=== PATIENT | female | born 1995 | race Caucasian/White ===

== ENCOUNTER → 2020-09-30 15:00 | Observation (INO) ==
[2020-09-30 13:26] LABS: Amorphous Sediment,Urine Few per hpf (None-Few); Bacteria,Urine Few per hpf (None-Few); Bilirubin,Urine Negative (Negative); Blood,Urine Negative (Negative); Clarity,Urine Turbid (Clear); Color,Urine Yellow (Yellow); Glucose,Urine (UA) Normal (Normal); Ketones,Urine Negative (Negative); Leukocyte Esterase,Urine Trace (Negative); Mucus,Urine Few per lpf (None-Few); Nitrite,Urine Negative (Negative); Protein,Urine Trace mg/dL (Neg-Trace); RBC,Urine 0-3 per hpf (0-3); Specific Gravity,Urine 1.017 (1.010-1.025); Squamous Epithelial Cell,Urine Many per hpf (None-Few); Urobilinogen,Urine Normal (Normal); WBC,Urine 0-3 per hpf (0-3)
[2020-09-30 14:15] LABS: Basophils % 0.2 %; Eosinophils # 0.1 K/mcL (0.0-0.6); Eosinophils % 0.6 %; Hematocrit 35.2 % (35.3-44.9); Immature Granulocytes % 0.4 % (0-4); Lymphocytes # 2.7 K/mcL (0.6-4.6); Lymphocytes % 22.6 %; Mean Corpuscular HGB Conc 34.1 g/dL (31.6-35.5); Mean Corpuscular Hemoglobin 32.3 pg (28.0-33.3); Mean Corpuscular Volume 94.9 fL (83.0-100.0); Monocytes # 0.8 K/mcL (0.0-1.3); Monocytes % 6.7 %; Neutrophils # 8.3 K/mcL (1.6-8.9); Platelet Count 200 K/mcL (140-400); Red Blood Count 3.71 M/mcL (3.82-4.97); Red Cell Distribution Width 12.1 % (11.5-14.5); Segmented Neutrophils % 69.5 %; White Blood Count 11.9 K/mcL (4.3-11.1)
[2020-09-30 14:34] LABS: Albumin 3.7 g/dL (3.5-5.7); Albumin/Globulin Ratio 1.3 (1.1-2.2); Bilirubin,Direct 0.1 mg/dL (0.0-0.2); Bilirubin,Indirect 0.1 mg/dL (0.0-1.0); Bilirubin,Total 0.2 mg/dL (0.3-1.0); Globulin 2.8 g/dL (2.4-3.5); Total Protein 6.5 g/dL (6.4-8.9)
== END | disposition home or self-care (01) ==
LOC: 1NENULAB
PROVIDERS: ADMIT Obstetrics & Gynecology; ATTEND Obstetrics & Gynecology

== ENCOUNTER 2020-10-19 19:02 | Observation (INO) ==
[2020-10-19 19:50] LABS: Bilirubin,Urine Negative (Negative); Blood,Urine Negative (Negative); Clarity,Urine Clear (Clear); Color,Urine Light-Orange (Yellow); Glucose,Urine (UA) Normal (Normal); Ketones,Urine Negative (Negative); Leukocyte Esterase,Urine Negative (Negative); Nitrite,Urine Negative (Negative); Protein,Urine Trace mg/dL (Neg-Trace); Specific Gravity,Urine 1.022 (1.010-1.025); Urobilinogen,Urine Normal (Normal)
[2020-10-19] MEDS ORDERED: Acetaminophen 325 MG TABLET PO ONE (20:11)
[2020-10-19 21:29] LABS: Trichomonas DNA Not Detected (Not Detect)
[2020-10-19 21:30] LABS: Candida DNA Not Detected (Not Detect); Gardnerella DNA DETECTED (Not Detect)
== END 2020-10-19 20:49 | disposition home or self-care (01) ==
LOC: 1NENULAB
PROVIDERS: ADMIT Obstetrics & Gynecology; ATTEND Obstetrics & Gynecology

== ENCOUNTER → 2020-11-14 18:53 | Observation (INO) ==
[2020-11-14 15:54] LABS: Basophils % 0.2 %; Eosinophils # 0.1 K/mcL (0.0-0.6); Eosinophils % 0.5 %; Hematocrit 32.8 % (35.3-44.9); Hemoglobin 11.4 g/dL (11.5-15.4); Immature Granulocytes % 0.7 % (0-4); Lymphocytes # 2.4 K/mcL (0.6-4.6); Lymphocytes % 18.3 %; Mean Corpuscular HGB Conc 34.8 g/dL (31.6-35.5); Mean Corpuscular Hemoglobin 32.1 pg (28.0-33.3); Mean Corpuscular Volume 92.4 fL (83.0-100.0); Mean Platelet Volume 9.4 fL (9.4-12.4); Monocytes # 0.9 K/mcL (0.0-1.3); Monocytes % 6.7 %; Neutrophils # 9.6 K/mcL (1.6-8.9); Platelet Count 215 K/mcL (140-400); Red Blood Count 3.55 M/mcL (3.82-4.97); Red Cell Distribution Width 12.1 % (11.5-14.5); Segmented Neutrophils % 73.6 %
[2020-11-14 15:58] LABS: Protein/Creatinine Ratio,Urine 0.11 mg/mg (0.00-0.20)
[2020-11-14 16:09] LABS: Alanine Aminotransferase 11 Units/L (7-52); Aspartate Amino Transferase 13 Units/L (13-39); BUN/Creatinine Ratio 15 (6-26); Blood Urea Nitrogen 8 mg/dL (6-20); Lactate Dehydrogenase 93 Units/L (140-271); Uric Acid 3.6 mg/dL (2.3-7.6); eGFR For African Americans > 60 (> 60); eGFR For Non-African Americans > 60 (> 60)
[2020-11-14 17:32] LABS: Amorphous Sediment,Urine Few per hpf (None-Few); Bacteria,Urine Few per hpf (None-Few); Bilirubin,Urine Negative (Negative); Blood,Urine Negative (Negative); Clarity,Urine Turbid (Clear); Color,Urine Yellow (Yellow); Glucose,Urine (UA) Normal (Normal); Hyaline Casts,Urine Few per lpf (None Seen); Ketones,Urine Negative (Negative); Leukocyte Esterase,Urine Negative (Negative); Mucus,Urine Few per lpf (None-Few); Nitrite,Urine Negative (Negative); Protein,Urine Negative (Neg-Trace); RBC,Urine 0-3 per hpf (0-3); Specific Gravity,Urine 1.017 (1.010-1.025); Squamous Epithelial Cell,Urine Moderate per hpf (None-Few); Urobilinogen,Urine Normal (Normal)
[~2020-11-14 18:53] MED LIST: Acetaminophen/Butalbital/CaffeineTABLET PO PRN
== END | disposition home or self-care (01) ==
LOC: 1NENULAB
PROVIDERS: ADMIT Registered Nurse; ATTEND Registered Nurse

== ENCOUNTER 2020-11-29 19:39 | Observation (INO) ==
[2020-11-29 19:46] LABS: Amorphous Sediment,Urine Few per hpf (None-Few); Bacteria,Urine Moderate per hpf (None-Few); Bilirubin,Urine Negative (Negative); Blood,Urine Negative (Negative); Clarity,Urine Turbid (Clear); Color,Urine Yellow (Yellow); Glucose,Urine (UA) Normal (Normal); Ketones,Urine Negative (Negative); Leukocyte Esterase,Urine Negative (Negative); Mucus,Urine Few per lpf (None-Few); Nitrite,Urine Negative (Negative); PH,Urine 6.5 pH Units (5.0-8.0); Protein,Urine Trace mg/dL (Neg-Trace); RBC,Urine 0-3 per hpf (0-3); Squamous Epithelial Cell,Urine Moderate per hpf (None-Few); Urobilinogen,Urine Normal (Normal)
[2020-11-29] MEDS ORDERED: Ringers Solution, Lactated 1,000 ML IVC ONE (19:52)
[2020-11-29] MEDS ORDERED: Ringers Solution, Lactated 1,000 ML ONE (19:59)
== END 2020-11-29 21:30 | disposition home or self-care (01) ==
LOC: 1NENULAB
PROVIDERS: ADMIT Student in an Organized Health Care Education/Training Program; ATTEND Student in an Organized Health Care Education/Training Program

== ENCOUNTER → 2020-12-23 23:58 | Observation (INO) ==
[2020-12-23 23:42] LABS: Bacteria,Urine Few per hpf (None-Few); Bilirubin,Urine Negative (Negative); Blood,Urine Negative (Negative); Clarity,Urine Turbid (Clear); Color,Urine Light-Yellow (Yellow); Glucose,Urine (UA) Normal (Normal); Ketones,Urine Negative (Negative); Leukocyte Esterase,Urine Trace (Negative); Mucus,Urine Few per lpf (None-Few); Nitrite,Urine Negative (Negative); Protein,Urine Negative (Neg-Trace); RBC,Urine 0-3 per hpf (0-3); Specific Gravity,Urine 1.011 (1.010-1.025); Squamous Epithelial Cell,Urine Many per hpf (None-Few); Urobilinogen,Urine Normal (Normal)
== END | disposition home or self-care (01) ==
LOC: 1NENULAB → 1NENUOBS
PROVIDERS: ADMIT Advanced Practice Midwife; ATTEND Advanced Practice Midwife

== ENCOUNTER → 2021-01-03 23:50 | Observation (INO) ==
[2021-01-03 22:17] LABS: Bilirubin,Urine Negative (Negative); Blood,Urine Negative (Negative); Clarity,Urine Clear (Clear); Color,Urine Light-Yellow (Yellow); Glucose,Urine (UA) Normal (Normal); Ketones,Urine Negative (Negative); Leukocyte Esterase,Urine Negative (Negative); Nitrite,Urine Negative (Negative); Protein,Urine Negative (Neg-Trace); Specific Gravity,Urine 1.009 (1.010-1.025); Urobilinogen,Urine Normal (Normal)
[~2021-01-03 23:50] MED LIST changes: +Acetaminophen 325 MG TABLET PO ONE; -Acetaminophen/Butalbital/CaffeineTABLET PO PRN; +Ringers Solution, Lactated 1,000 ML IVC ONE; +Ringers Solution, Lactated 1,000 ML ONE
== END | disposition home or self-care (01) ==
LOC: 1NENULAB
PROVIDERS: ADMIT Student in an Organized Health Care Education/Training Program; ATTEND Student in an Organized Health Care Education/Training Program

== ENCOUNTER → 2021-01-10 18:53 | Observation (INO) ==
[2021-01-10 18:09] LABS: Bacteria,Urine Few per hpf (None-Few); Bilirubin,Urine Negative (Negative); Blood,Urine Negative (Negative); Clarity,Urine Turbid (Clear); Color,Urine Light-Yellow (Yellow); Glucose,Urine (UA) Normal (Normal); Ketones,Urine Negative (Negative); Leukocyte Esterase,Urine Negative (Negative); Mucus,Urine Few per lpf (None-Few); Nitrite,Urine Negative (Negative); Protein,Urine Trace mg/dL (Neg-Trace); RBC,Urine 0-3 per hpf (0-3); Specific Gravity,Urine 1.015 (1.010-1.025); Squamous Epithelial Cell,Urine Moderate per hpf (None-Few); Urobilinogen,Urine Normal (Normal)
== END | disposition home or self-care (01) ==
LOC: 1NENULAB
PROVIDERS: ADMIT Advanced Practice Midwife; ATTEND Advanced Practice Midwife

== ENCOUNTER 2021-01-20 20:59 | Observation (INO) ==
[2021-01-20 21:27] LABS: Basophils % 0.2 %; Eosinophils # 0.1 K/mcL (0.0-0.6); Eosinophils % 0.7 %; Hematocrit 33.1 % (35.3-44.9); Lymphocytes % 23.1 %; Mean Corpuscular HGB Conc 33.2 g/dL (31.6-35.5); Mean Corpuscular Hemoglobin 30.9 pg (28.0-33.3); Mean Platelet Volume 9.5 fL (9.4-12.4); Monocytes # 1.5 K/mcL (0.0-1.3); Monocytes % 8.7 %; Neutrophils # 11.5 K/mcL (1.6-8.9); Platelet Count 277 K/mcL (140-400); Red Blood Count 3.56 M/mcL (3.82-4.97); Red Cell Distribution Width 12.4 % (11.5-14.5); Segmented Neutrophils % 66.3 %; White Blood Count 17.3 K/mcL (4.3-11.1)
[2021-01-20 21:30] VITALS: BP 146/87
[2021-01-20 21:37] LABS: Bacteria,Urine Few per hpf (None-Few); Bilirubin,Urine Negative (Negative); Blood,Urine Negative (Negative); Clarity,Urine Turbid (Clear); Color,Urine Light-Yellow (Yellow); Glucose,Urine (UA) Normal (Normal); Ketones,Urine Negative (Negative); Leukocyte Esterase,Urine Negative (Negative); Nitrite,Urine Negative (Negative); PH,Urine 7.5 pH Units (5.0-8.0); Protein,Urine Trace mg/dL (Neg-Trace); RBC,Urine 0-3 per hpf (0-3); Specific Gravity,Urine 1.014 (1.010-1.025); Squamous Epithelial Cell,Urine Moderate per hpf (None-Few); Urobilinogen,Urine Normal (Normal); WBC,Urine 0-3 per hpf (0-3)
[2021-01-20 21:50] LABS: Alanine Aminotransferase 10 Units/L (7-52); Aspartate Amino Transferase 15 Units/L (13-39); BUN/Creatinine Ratio 10 (6-26); Blood Urea Nitrogen 6 mg/dL (6-20); Lactate Dehydrogenase 125 Units/L (140-271); Uric Acid 3.9 mg/dL (2.3-7.6); eGFR For African Americans > 60 (> 60); eGFR For Non-African Americans > 60 (> 60)
[2021-01-20 22:37] LABS: Protein/Creatinine Ratio,Urine 0.19 mg/mg (0.00-0.20)
[2021-01-20] MEDS ORDERED: Metoclopramide 10 MG/2 ML VIAL IVP ONE (22:46)
[2021-01-20] MEDS ORDERED: Acetaminophen 325 MG TABLET PO ONE (22:46)
== END 2021-01-20 23:05 | disposition home or self-care (01) ==
LOC: 1NENULAB
PROVIDERS: ADMIT Advanced Practice Midwife; ATTEND Advanced Practice Midwife

== ENCOUNTER 2021-01-28 21:45 | Observation (INO) ==
[2021-01-28] MEDS ORDERED: Ringers Solution, Lactated 1,000 ML IVC SCH (22:15)
[2021-01-28] MEDS: *HR* Nalbuphine 10 MG/ML AMPUL IV PRN (22:38)
[2021-01-28 23:02] LABS: Bilirubin,Urine Negative (Negative); Blood,Urine Negative (Negative); Clarity,Urine Clear (Clear); Color,Urine Light-Yellow (Yellow); Glucose,Urine (UA) Normal (Normal); Ketones,Urine Negative (Negative); Leukocyte Esterase,Urine Negative (Negative); Nitrite,Urine Negative (Negative); Protein,Urine Negative (Neg-Trace); Specific Gravity,Urine 1.017 (1.010-1.025); Urobilinogen,Urine Normal (Normal)
[2021-01-29] MEDS: *HR* Nalbuphine 10 MG/ML AMPUL IV PRN (00:37)
== END 2021-01-29 01:50 | disposition home or self-care (01) ==
LOC: 1NENULAB
PROVIDERS: ADMIT Registered Nurse; ATTEND Registered Nurse

== ENCOUNTER 2021-01-31 19:45 | Observation (INO) ==
[2021-01-31] MEDS ORDERED: hydrOXYzine pamoate 25 MG CAPSULE PO ONE (20:37)
== END 2021-01-31 20:57 | disposition home or self-care (01) ==
LOC: 1NENULAB
PROVIDERS: ADMIT Obstetrics & Gynecology; ATTEND Obstetrics & Gynecology

== ENCOUNTER 2021-02-04 22:13 | Observation (INO) | END 2021-02-04 23:47 | disposition home or self-care (01) | LOC: 1NENULAB | PROVIDERS: ADMIT Registered Nurse; ATTEND Registered Nurse ==

== ENCOUNTER 2021-02-06 22:00 | Inpatient (IN) ==
[2021-02-06] MEDS ORDERED: Lidocaine 1% 20 ML MDV INFILT PRN (22:13)
[2021-02-06] MEDS ORDERED: Naloxone 0.4 MG/ML INJ IVP PRN (22:13)
[2021-02-06] MEDS ORDERED: *HR* Nalbuphine 10 MG/ML AMPUL IV PRN (22:13)
[2021-02-06] MEDS ORDERED: Metoclopramide 10 MG/2 ML VIAL IVP PRN (22:13)
[2021-02-06] MEDS ORDERED: Famotidine 20 MG/2 ML VIAL IVP PRN (22:13)
[2021-02-06] MEDS ORDERED: Ondansetron 4 MG/2 ML VIAL IVP PRN (22:13)
[2021-02-06] MEDS ORDERED: Ringers Solution, Lactated 1,000 ML IVC SCH (22:15)
[2021-02-06] MEDS ORDERED: miSOPROStoL 25 MCG TABLET PO PRN (22:15)
[2021-02-06 22:57] LABS: Basophils # 0.1 K/mcL (0.0-0.2); Basophils % 0.3 %; Eosinophils # 0.1 K/mcL (0.0-0.6); Eosinophils % 0.4 %; Hematocrit 33.6 % (35.3-44.9); Hemoglobin 11.5 g/dL (11.5-15.4); Immature Granulocytes % 0.8 % (0-4); Lymphocytes # 3.8 K/mcL (0.6-4.6); Lymphocytes % 24.4 %; Mean Corpuscular HGB Conc 34.2 g/dL (31.6-35.5); Mean Corpuscular Hemoglobin 31.5 pg (28.0-33.3); Mean Corpuscular Volume 92.1 fL (83.0-100.0); Mean Platelet Volume 9.7 fL (9.4-12.4); Monocytes # 1.2 K/mcL (0.0-1.3); Monocytes % 7.6 %; Neutrophils # 10.4 K/mcL (1.6-8.9); Platelet Count 275 K/mcL (140-400); Red Blood Count 3.65 M/mcL (3.82-4.97); Red Cell Distribution Width 12.4 % (11.5-14.5); Segmented Neutrophils % 66.5 %; White Blood Count 15.7 K/mcL (4.3-11.1)
[2021-02-06 23:03] LABS: Amphetamine Screen,Urine Negative ng/mL (Cutoff=1000); Barbiturate Screen,Urine Negative ng/mL (Cutoff=200); Benzodiazepines Screen,Urine Negative ng/mL (Cutoff=200); Cannabinoid Screen,Urine Negative ng/mL (Cutoff = 50); Cocaine Screen,Urine Negative ng/mL (Cutoff= 300); Opiate Screen,Urine Negative ng/mL (Cutoff=300); Phencyclidine Screen,Urine Negative ng/mL (Cutoff=25)
[2021-02-06 23:28] LABS: Platelet Estimate Normal (Normal)
[2021-02-06 23:42] LABS: Influenza A PCR Negative (Negative); Influenza B PCR Negative (Negative); Resp. Syncytial Virus PCR Negative (Negative)
[2021-02-06] MEDS ORDERED: Acetaminophen 325 MG TABLET PO PRN (23:46)
[2021-02-06 23:54] LABS: SARS-CoV-2 by PCR (In House) Negative (Negative)
[2021-02-07] MEDS ORDERED: EPHEDrine 50 MG/ML VIAL IVP PRN (02:54)
[2021-02-07] MEDS ORDERED: Oxytocin 20 units/ LR 1000 mL 20 UNIT/1,000 ML BAG IVC SCH (03:00)
[2021-02-07] MEDS: Epidural Premix (fent/bupiv) 110 ML EP SCH ×3 (09:41→21:25)
[2021-02-07] MEDS ORDERED: *HR* FentaNYL (PF) 100 MCG/2 ML VIAL ONE ×2 (09:53→22:34)
[2021-02-08] MEDS ORDERED: Oxytocin 20 units/ LR 1000 mL 20 UNIT/1,000 ML BAG IVC SCH (02:51)
[2021-02-08] MEDS ORDERED: Lanolin 7 G OINT...G. TP PRN (02:51)
[2021-02-08] MEDS ORDERED: Sennosides 8.6 MG TABLET PO PRN (02:51)
[2021-02-08] MEDS ORDERED: Benzocaine/Menthol 56 GM AEROSOL SPRAY TP PRN (02:51)
[2021-02-08] MEDS ORDERED: Acetaminophen 325 MG TABLET PO PRN (02:51)
[2021-02-08] MEDS: Ibuprofen 600 MG TABLET PO PRN ×2 (04:30→15:51)
[2021-02-08 04:54] LABS: Basophils % 0.2 %; Hematocrit 30.9 % (35.3-44.9); Hemoglobin 10.5 g/dL (11.5-15.4); Immature Granulocytes % 0.6 % (0-4); Lymphocytes # 1.5 K/mcL (0.6-4.6); Lymphocytes % 6.2 %; Mean Corpuscular Hemoglobin 31.6 pg (28.0-33.3); Mean Corpuscular Volume 93.1 fL (83.0-100.0); Mean Platelet Volume 9.6 fL (9.4-12.4); Monocytes # 1.3 K/mcL (0.0-1.3); Monocytes % 5.2 %; Neutrophils # 21.4 K/mcL (1.6-8.9); Platelet Count 204 K/mcL (140-400); Red Blood Count 3.32 M/mcL (3.82-4.97); Red Cell Distribution Width 12.2 % (11.5-14.5); Segmented Neutrophils % 87.8 %
[2021-02-08 05:17] LABS: Basophils # 0.1 K/mcL (0.0-0.2); White Blood Count 24.4 K/mcL (4.3-11.1)
[2021-02-08] MEDS: Prenatal Vit/FA 1 EACH TABLET PO SCH (08:24)
[2021-02-09] MEDS: Ibuprofen 600 MG TABLET PO PRN (02:40)
[2021-02-09] MEDS: Prenatal Vit/FA 1 EACH TABLET PO SCH (08:13)
[2021-02-09 08:29] VITALS: BP 138/91
== END 2021-02-09 14:02 | disposition home or self-care (01) | DRG 560 ==
LOC: 1NENULAB 22:00 → 1NENUOBS 02-08 02:51
PROVIDERS: ADMIT Obstetrics & Gynecology; ATTEND Obstetrics & Gynecology